=== PATIENT | male | born 1940 | race Caucasian/White ===

== ENCOUNTER 2024-06-04 12:55 | Emergency (ER) | payer MEDICAID ==
[~2024-06-04] VITALS: Ht 170.2 cm; Wt 81.6 kg
[2024-06-04] MEDS ORDERED: CAPT100T2 PO ×2 (13:21→13:34)
[2024-06-04] MEDS ORDERED: PRAM2.252 PO ×2 (13:21→13:34)
[2024-06-04] MEDS ORDERED: AMLO-212 PO ×2 (13:21→13:34)
[2024-06-04] MEDS ORDERED: LOSA50TA39 PO ×2 (13:21→13:34)
[2024-06-04] MEDS ORDERED: TAMS-3 PO ×2 (13:21→13:34)
[2024-06-04] MEDS ORDERED: LEVO25PO MC ×2 (13:21→13:34)
[2024-06-04] MEDS ORDERED: ATOR40TA PO ×2 (13:21→13:34)
[2024-06-04] MEDS ORDERED: LEVO25PO PO (13:38)
[2024-06-04 14:12] VITALS: BP 166/85; TEMP 98.3; O2SAT 96
[2024-06-04] MEDS ORDERED: PRAM0.129 PO (19:19)
[2024-06-04] MEDS ORDERED: CARB1TAB21 PO (19:19)
== END 2024-06-04 14:13 | disposition home or self-care (01) ==
LOC: ER 12:55
DX: I10 Essential (primary) hypertension (principal); G20.A1 Parkinson's disease without dyskinesia, without mention of fluctuations; E78.5 Hyperlipidemia, unspecified; Z76.0 Encounter for issue of repeat prescription; Z98.890 Other specified postprocedural states; Z79.899 Other long term (current) drug therapy
CPT/HCPCS: A4606; A4663